=== PATIENT | female | born 1945 | race Caucasian/White ===

== ENCOUNTER 2016-06-19 10:13 | Emergency (ER) | payer OTHER ==
[~2016-06-19] VITALS: Ht 170.2 cm; Wt 93.8 kg
[~2016-06-19 10:13] MED LIST: 8 HOUR PAIN RE650 M1 PO; ACID CONTROLLER20 MG PO; ADALAT CC 60 MG60 MG PO; ADULT LOW DOSE81 M1 PO; ALDOMET500 MG PO; ALPRAZOLAM0.25 MG PO; AMMONIUM LACTA224 GM TP; ANTACID420 MG PO; ANUSOL HC,ANUCO25 MG PR; APRESOLINE100 MG PO; APRESOLINE50 MG PO; AQUAPHOR TP; ASPIR-TRIN325 M1 PO; ASPIRIN EC325 MG PO; ASPIRIN325 MG; ASPIRIN325 MG PO; Aranesp IV; B COMPLETE1 EACH PO; B COMPLEX #11 EACH PO; B COMPLEX1 EAC2 PO; B-100 COMPLEX1 EACH PO; BACITRACIN28.4 GM RIGHT NARE; BACITRACIN28.4 GM TP; BACTRIM,SEPT1 TABLET PO; BALANCED B-100100 MG PO; BUMETANIDE2 MG PO; BUMEX1 MG PO; BUMEX2 MG PO; BUSPAR5 MG PO; BUSPIRONE HCL5 MG PO; BYSTOLIC10 MG PO; Bumex PO; CALCITRIOL0.25 MCG PO; CALCITRIOL0.5 MCG PO; CALCIUM CARBO1000 MG PO; CARDURA2 M1 PO; CARDURA4 MG PO; CATAPRES0.1 MG G-TUBE; CATAPRES0.1 MG PO; CATAPRES0.2 MG PO; CATAPRES0.3 MG PO; CEFTIN500 MG PO; CLONIDINE HCL0.2 MG PO; CLONIDINE HCL0.3 MG PO; CLOPIDOGREL75 MG PO; COMPAZINE10 MG PO; COREG6.25 M1 PO; COZAAR100 MG PO; Cozaar PO; DEXILANT60 MG PO; DIABETIC T100 MG/5 M PO; DILANTIN100 MG PO; DILANTIN30 MG PO; DILAUDID2 MG PO; DOXAZOSIN MESYLA2 MG PO; DOXAZOSIN MESYLA4 MG PO; DOXYCYCLINE HY100 M3 PO; DULCOLAX10 MG PR; ECOTRIN325 MG PO; ENTEREG12 MG PO; ESCITALOPRAM OX10 MG PO; FAMOTIDINE20 M1 PO; FAMOTIDINE20 MG PO; FLAGYL500 MG PO; FLEET ENEMA-AD118 ML PR; HEARTBURN PREVE20 MG PO; HYDRALAZINE HC100 MG PO; HYDRALAZINE HCL50 MG PO; HYDROCODON-ACE1 EAC7 PO; HYDROPHOR228 GM TP; IMODIUM A-D2 MG PO; KAYEXALATE15 GM/60 M PO; KEFLEX500 MG PO; KIONEX15 GM/60 M PO; LABETALOL HCL200 MG PO; LAC-HYDRIN 12%225 GM TP; LEVOFLOXACIN750 MG PO; LEVOTHYROXINE25 MCG PO; LEXAPRO10 MG PO; LITE COAT ASPI325 M1 PO; LOFIBRA200 MG PO; LORCET 5-325 M1 EACH PO; LOSARTAN POTAS100 MG PO; LOSARTAN POTASS50 MG PO; MELATONIN5 M1 PO; METHOCARBAMOL500 MG PO; MIRTAZAPINE15 MG PO; NIFEDICAL XL60 MG PO; NIFEDIPINE ER60 MG PO; NIFEDIPINE ER90 MG PO; NORMODYNE,TRAN200 MG PO; NOVOLOG 10100 UNITS/ SC; NOVOLOG PE100 UNITS/ SC; OMEPRAZOLE20 MG PO; ORAL ANESTHETIC7 GM MM; PANTOPRAZOLE SO40 MG PO; PEPCID20 MG PO; PERCOCET 5/31 TABLET PO; PHENYTOIN SODI100 M1 PO; PHILLIPS'400 MG/5 M PO; PLAVIX75 MG PO; PRAVACHOL40 MG PO; PRAVASTATIN SOD40 MG PO; PREVACID30 MG PO; PROCARDIA XL60 MG PO; PROCARDIA XL90 MG PO; PROMETHAZINE HC25 M1 PO; PROTONIX40 MG PO; Pepcid PO; Procardia XL,Adalat PO; QUESTRAN4 GM/PACKE PO; REMERON15 M2 PO; RENVELA800 MG PO; REQUIP0.5 MG PO; ROBAXIN500 MG PO; ROCALTROL0.25 MCG PO; ROPINIROLE HCL0.5 MG PO; Rocephin; SENSIPAR60 MG PO; SENSIPAR90 MG PO; SILTUSSIN100 MG/51 PO; SORE THROAT LO1 EACH MM; SYNTHROID25 MCG PO; TEKTURNA150 MG PO; TRAMADOL HCL50 MG PO; TRANDATE200 MG PO; TUMS500 MG PO; TYLENOL EXTRA500 MG PO; TYLENOL REGULA325 MG PO; TYLENOL325 M1 PO; ULTRAM50 MG PO; VANCOMYCIN HCL1 GM IV; VICODIN 5-3001 EACH PO; VITAMIN B COMP1 EACH PO; VITAMIN B W/C1 EACH PO; VITAMIN D-32000 UNI1 PO; VITAMIN D250000 UNIT PO; VITAMIN D32000 UNIT PO; VITAMIN D34000 UNIT PO; VITAMIN D400 UNI1 PO; VITAMIN D400 UNIT PO; Vitamin B Complex PO; Vitamin D PO; WELCHOL3.75 GM PO; XANAX0.125 MG PO; XANAX0.25 MG PO; ZANTAC150 M1 PO; ZEGERID 20 MG1 EACH PO; ZOFRAN4 MG PO; [UNRECOGNIZED DRUG - OTHER] PO; [UNRECOGNIZED DRUG - REMARK] PO
[2016-06-19 14:25] LABS: EOSINOPHIL (%) 0.1 % (0-5); IMMATURE GRANULOCYTE (%) 0.2 % (0.0-0.7); IMMATURE GRANULOCYTE COUNT 0.2 K/uL; LYMPHOCYTE COUNT 0.6 K/uL (1.0-2.8); MCH 36.1 PG (29.0-34.0); MCHC 33.3 G/DL (30.0-36.0); MCV 108.3 FL (83-99); MEAN PLAT.VOLUME 10.3 uM^3 (9.5-12.4); MONOCYTE (%) 6.3 % (3-12); MONOCYTE COUNT 0.6 K/uL (0-0.8); NEUTROPHIL (%) 86.7 % (45-76); NEUTROPHIL COUNT 8.2 K/uL (1.8-6.4); PLATELET COUNT 129 K/uL (156-360); RBC DIS.WIDTH-CV 14.2 % (11.8-14.6); RBC DIS.WIDTH-SD 54.5 % (39-53); RED BLOOD COUNT 2.77 M/uL (3.80-5.20); WHITE BLOOD COUNT 9.4 K/uL (4.1-10.2)
[2016-06-19 14:35] LABS: CHLORIDE 93 mEq/L (99-109); INTER. NORMALIZED RATIO 1.2; PROTHROMBIN TIME 11.8 (9.2-11.2); PTT 29.1 (25-32); SODIUM 137 mEq/L (136-147)
[2016-06-19 14:36] LABS: MAGNESIUM 2.1 mg/dL (1.3-2.7)
[2016-06-19 14:39] LABS: ANION GAP 16 MEQ/L (2-14); GLUCOSE 491 mg/dL (70-99)
[2016-06-19 14:41] LABS: GFR ESTIMATE (CALCULATED) 9 mL/min/
[2016-06-19 14:42] LABS: UREA NITROGEN (BUN) 44 mg/dL (9-23)
[2016-06-19 14:44] LABS: CREATINE KINASE 28 IU/L (1-294)
[2016-06-19 14:48] LABS: TROP-I INTERPRETATION NEGATIVE; TROPONIN-I 0.07 ng/mL (0.0-0.30)
[2016-06-19 17:18] VITALS: BP 162/47
== END 2016-06-19 17:20 | disposition home or self-care (01) ==
LOC: EME 10:13
PROVIDERS: Emergency Medicine
DX: E11.65 Type 2 diabetes mellitus with hyperglycemia (principal); S80.02XA Contusion of left knee, initial encounter; J44.9 Chronic obstructive pulmonary disease, unspecified; E78.5 Hyperlipidemia, unspecified; I10 Essential (primary) hypertension; W06.XXXA Fall from bed, initial encounter; N19 Unspecified kidney failure; Z99.2 Dependence on renal dialysis; Z79.01 Long term (current) use of anticoagulants; Z88.6 Allergy status to analgesic agent
CPT/HCPCS: 70450; 71010; 72170; 73564; 74176; 80048; 82550 91; 82948; 83735; 84484; 85025; 85610; 85730; 93005; 99281; 99285

== ENCOUNTER 2016-06-20 11:20 | Inpatient (IN) | payer OTHER ==
[~2016-06-20] VITALS: Ht 167.6 cm; Wt 98.6 kg
[2016-06-20 11:56] LABS: HEMATOCRIT 29.3 % (36.0-46.0); MCHC 33.4 G/DL (30.0-36.0); MCV 107.7 FL (83-99); MEAN PLAT.VOLUME 9.9 uM^3 (9.5-12.4); PLATELET COUNT 141 K/uL (156-360); RBC DIS.WIDTH-CV 14.4 % (11.8-14.6); RBC DIS.WIDTH-SD 55.1 % (39-53); RED BLOOD COUNT 2.72 M/uL (3.80-5.20); WHITE BLOOD COUNT 7.4 K/uL (4.1-10.2)
[2016-06-20 12:16] LABS: CHLORIDE 91 mEq/L (99-109); POTASSIUM 4.3 mEq/L (3.7-5.4); SODIUM 135 mEq/L (136-147)
[2016-06-20 12:18] LABS: GLUCOSE 367 mg/dL (70-99)
[2016-06-20 12:19] LABS: ANION GAP 16 MEQ/L (2-14)
[2016-06-20 12:22] LABS: GFR ESTIMATE (CALCULATED) 7 mL/min/; UREA NITROGEN (BUN) 55 mg/dL (9-23)
[2016-06-20 17:13] LABS: POINT-OF-CARE METER ID UU13113702
[2016-06-21 07:26] LABS: POINT-OF-CARE METER ID UU13113702
[2016-06-21 09:18] VITALS: BP 187/71
[2016-06-21 13:57] LABS: ANION GAP 14 MEQ/L (2-14); CHLORIDE 90 MEQ/L (99-109); POTASSIUM 4.8 MEQ/L (3.7-5.4); SAMPLE HEMOLYSIS CHECK 0; SAMPLE ICTERIC CHECK 0; SAMPLE LIPEMIA CHECK 0; SODIUM 130 MEQ/L (136-147)
[2016-06-21 14:00] LABS: EOSINOPHIL (%) 0.7 % (0-5); HEMATOCRIT 26.5 % (36.0-46.0); IMMATURE GRANULOCYTE (%) 0.2 % (0.0-0.7); LYMPHOCYTE COUNT 0.8 K/uL (1.0-2.8); MCH 35.3 PG (29.0-34.0); MCHC 33.2 G/DL (30.0-36.0); MCV 106.4 FL (83-99); MEAN PLAT.VOLUME 10.2 uM^3 (9.5-12.4); MONOCYTE (%) 7.8 % (3-12); MONOCYTE COUNT 0.5 K/uL (0-0.8); NEUTROPHIL (%) 77.2 % (45-76); NEUTROPHIL COUNT 4.6 K/uL (1.8-6.4); PLATELET COUNT 141 K/uL (156-360); RBC DIS.WIDTH-CV 14.9 % (11.8-14.6); RBC DIS.WIDTH-SD 57.3 % (39-53); RED BLOOD COUNT 2.49 M/uL (3.80-5.20); WHITE BLOOD COUNT 5.9 K/uL (4.1-10.2)
[2016-06-21 14:02] LABS: GFR ESTIMATE (CALCULATED) 6 mL/min/; GLUCOSE 219 mg/dL (70-99); UREA NITROGEN (BUN) 63 mg/dL (9-23)
[2016-06-21 17:56] VITALS: BP 174/93
[2016-06-21 19:01] LABS: POINT-OF-CARE METER ID UU13113717
[2016-06-21 21:04] LABS: POINT-OF-CARE METER ID UU13113717
[2016-06-22 00:35] VITALS: BP 149/57
[2016-06-22 05:59] LABS: POINT-OF-CARE METER ID UU13113717
[2016-06-22 07:54] LABS: EOSINOPHIL (%) 2.1 % (0-5); EOSINOPHIL COUNT 0.1 K/uL (0-0.3); HEMATOCRIT 27.5 % (36.0-46.0); IMMATURE GRANULOCYTE (%) 0.2 % (0.0-0.7); LYMPHOCYTE COUNT 0.6 K/uL (1.0-2.8); MCH 35.3 PG (29.0-34.0); MCHC 33.1 G/DL (30.0-36.0); MCV 106.6 FL (83-99); MEAN PLAT.VOLUME 10.4 uM^3 (9.5-12.4); MONOCYTE COUNT 0.4 K/uL (0-0.8); NEUTROPHIL (%) 73.1 % (45-76); NEUTROPHIL COUNT 3.2 K/uL (1.8-6.4); NRBC (%) 0.7 /100 WBC (0-0); PLATELET COUNT 147 K/uL (156-360); RBC DIS.WIDTH-CV 14.8 % (11.8-14.6); RBC DIS.WIDTH-SD 57.2 % (39-53); RED BLOOD COUNT 2.58 M/uL (3.80-5.20); WHITE BLOOD COUNT 4.4 K/uL (4.1-10.2)
[2016-06-22 08:16] LABS: ANION GAP 11 MEQ/L (2-14); CHLORIDE 95 MEQ/L (99-109); GLUCOSE 266 mg/dL (70-99); SAMPLE HEMOLYSIS CHECK 0; SAMPLE ICTERIC CHECK 0; SAMPLE LIPEMIA CHECK 0; SODIUM 133 MEQ/L (136-147)
[2016-06-22 08:18] LABS: GFR ESTIMATE (CALCULATED) 11 mL/min/; POTASSIUM 3.7 MEQ/L (3.7-5.4); UREA NITROGEN (BUN) 31 mg/dL (9-23)
[2016-06-22 09:25] LABS: ALKALINE PHOSPHATASE 142 IU/L (3-129); Estimated Average Glucose 203 mg/dL (70-123); HEMOGLOBIN A1c (GLYCOHEMOGLOB) 8.7 % HGB (Below 5.7); IRON 69 MCG/DL (35-150); TOTAL BILIRUBIN 0.7 MG/DL (0.0-1.0)
[2016-06-22 10:05] LABS: FERRITIN 608 NG/ML (10-291)
[2016-06-22 12:09] LABS: POINT-OF-CARE METER ID UU13113717
[2016-06-22 16:44] LABS: POINT-OF-CARE METER ID UU13113717
[2016-06-22 22:20] LABS: POINT-OF-CARE METER ID UU13113717
[2016-06-22 23:46] VITALS: BP 131/63
[2016-06-23 06:17] LABS: POINT-OF-CARE METER ID UU13113717
[2016-06-23 07:54] LABS: HEMATOCRIT 32.2 % (36.0-46.0); MCH 34.9 PG (29.0-34.0); MCHC 32.9 G/DL (30.0-36.0); MCV 105.9 FL (83-99); MEAN PLAT.VOLUME 10.1 uM^3 (9.5-12.4); PLATELET COUNT 190 K/uL (156-360); RBC DIS.WIDTH-CV 15.2 % (11.8-14.6); RBC DIS.WIDTH-SD 58.4 % (39-53); RED BLOOD COUNT 3.04 M/uL (3.80-5.20); WHITE BLOOD COUNT 5.6 K/uL (4.1-10.2)
[2016-06-23 08:14] VITALS: BP 153/85
[2016-06-23 08:20] LABS: ALKALINE PHOSPHATASE 177 IU/L (3-129); ANION GAP 14 MEQ/L (2-14); CHLORIDE 94 MEQ/L (99-109); GFR ESTIMATE (CALCULATED) 14 mL/min/; GLUCOSE 169 mg/dL (70-99); POTASSIUM 4.1 MEQ/L (3.7-5.4); SAMPLE HEMOLYSIS CHECK 0; SAMPLE ICTERIC CHECK 0; SAMPLE LIPEMIA CHECK 0; SODIUM 132 MEQ/L (136-147); TOTAL BILIRUBIN 0.8 MG/DL (0.0-1.0); UREA NITROGEN (BUN) 24 mg/dL (9-23)
[2016-06-23 11:39] LABS: POINT-OF-CARE METER ID UU13113725
[2016-06-23 15:45] LABS: POINT-OF-CARE METER ID UU13113725
[2016-06-23 16:04] VITALS: BP 187/76
[2016-06-24 00:26] VITALS: BP 147/65
[2016-06-24 06:48] LABS: POINT-OF-CARE METER ID UU13113725
[2016-06-24 08:37] VITALS: BP 148/73
[2016-06-24 11:31] VITALS: BP 153/69
[2016-06-24 15:38] LABS: POINT-OF-CARE METER ID UU13113725
[2016-06-24 16:28] VITALS: BP 171/73
[2016-06-24 20:48] LABS: POINT-OF-CARE METER ID UU13113725
[2016-06-24 22:35] VITALS: BP 135/67
[2016-06-25 06:02] LABS: POINT-OF-CARE METER ID UU13113725
[2016-06-25 06:08] LABS: HEMATOCRIT 29.3 % (36.0-46.0); MCH 35.2 PG (29.0-34.0); MCHC 34.1 G/DL (30.0-36.0); MCV 103.2 FL (83-99); PLATELET COUNT 154 K/uL (156-360); RBC DIS.WIDTH-CV 15.2 % (11.8-14.6); RBC DIS.WIDTH-SD 56.8 % (39-53); RED BLOOD COUNT 2.84 M/uL (3.80-5.20)
[2016-06-25 06:48] LABS: ALKALINE PHOSPHATASE 182 IU/L (3-129); ANION GAP 19 MEQ/L (2-14); CHLORIDE 86 MEQ/L (99-109); GLUCOSE 153 mg/dL (70-99); SAMPLE HEMOLYSIS CHECK 1; SAMPLE ICTERIC CHECK 0; SAMPLE LIPEMIA CHECK 0; SODIUM 127 MEQ/L (136-147)
[2016-06-25 06:49] LABS: GFR ESTIMATE (CALCULATED) 7 mL/min/; POTASSIUM 5.4 MEQ/L (3.7-5.4); TOTAL BILIRUBIN 0.6 MG/DL (0.0-1.0); UREA NITROGEN (BUN) 47 mg/dL (9-23)
[2016-06-25 09:52] LABS: POTASSIUM 3.9 MEQ/L (3.7-5.4)
[2016-06-25 12:21] LABS: POINT-OF-CARE METER ID UU13113717
[2016-06-25 16:28] LABS: POINT-OF-CARE METER ID UU13113725
[2016-06-25 21:03] LABS: POINT-OF-CARE METER ID UU13113725
[2016-06-25 23:26] VITALS: BP 136/65
[2016-06-26 05:57] LABS: POINT-OF-CARE METER ID UU13113725
[2016-06-26 07:16] VITALS: BP 177/81
[2016-06-26 09:00] LABS: EOSINOPHIL (%) 1.1 % (0-5); EOSINOPHIL COUNT 0.1 K/uL (0-0.3); HEMATOCRIT 30.2 % (36.0-46.0); IMMATURE GRANULOCYTE (%) 0.4 % (0.0-0.7); LYMPHOCYTE COUNT 0.9 K/uL (1.0-2.8); MCH 35.5 PG (29.0-34.0); MCHC 34.8 G/DL (30.0-36.0); MEAN PLAT.VOLUME 9.9 uM^3 (9.5-12.4); MONOCYTE (%) 8.5 % (3-12); MONOCYTE COUNT 0.5 K/uL (0-0.8); NEUTROPHIL (%) 72.7 % (45-76); PLATELET COUNT 133 K/uL (156-360); RBC DIS.WIDTH-CV 15.3 % (11.8-14.6); RBC DIS.WIDTH-SD 55.7 % (39-53); RED BLOOD COUNT 2.96 M/uL (3.80-5.20); WHITE BLOOD COUNT 5.4 K/uL (4.1-10.2)
[2016-06-26 09:27] LABS: ALKALINE PHOSPHATASE 198 IU/L (3-129); ANION GAP 13 MEQ/L (2-14); CHLORIDE 89 MEQ/L (99-109); POTASSIUM 4.2 MEQ/L (3.7-5.4); SAMPLE HEMOLYSIS CHECK 0; SAMPLE ICTERIC CHECK 0; SAMPLE LIPEMIA CHECK 0; SODIUM 126 MEQ/L (136-147); TOTAL BILIRUBIN 0.7 MG/DL (0.0-1.0); UREA NITROGEN (BUN) 29 mg/dL (9-23)
[2016-06-26 09:28] LABS: GFR ESTIMATE (CALCULATED) 11 mL/min/; GLUCOSE 236 mg/dL (70-99)
[2016-06-26 11:47] LABS: POINT-OF-CARE METER ID UU13113717
[2016-06-26 15:44] VITALS: BP 153/73
[2016-06-26] MEDS ORDERED: DURICEF500 MG PO (15:46)
[2016-06-26] MEDS ORDERED: TRAMADOL HCL50 MG PO (15:48)
[2016-06-26] MEDS ORDERED: SILVADENE20 GM TP (15:49)
[2016-06-26] MEDS ORDERED: NEURONTIN100 MG PO (15:50)
[2016-06-26 16:29] LABS: POINT-OF-CARE METER ID UU13113725
== END 2016-06-26 17:00 | disposition home health service (06) | DRG 579 ==
LOC: EME 11:20 → 5EAST 22:12 → EDOF 22:12 → 5EAST 06-21 17:47
PROVIDERS: Internal Medicine; Internal Medicine Nephrology
PROC: 5A1D60Z (ICD-10-PCS; principal; 2016-06-21)
PROC: 0JBK0ZZ Excision of Left Hand Subcutaneous Tissue and Fascia, Open Approach (ICD-10-PCS; 2016-06-25)
DX: L03.115 Cellulitis of right lower limb (principal); L03.116 Cellulitis of left lower limb; R53.1 Weakness; R25.1 Tremor, unspecified; E11.22 Type 2 diabetes mellitus with diabetic chronic kidney disease; I13.2 Hypertensive heart and chronic kidney disease with heart failure and with stage 5 chronic kidney disease, or end stage renal disease; N18.6 End stage renal disease; N25.81 Secondary hyperparathyroidism of renal origin; I50.9 Heart failure, unspecified; M25.512 Pain in left shoulder; I25.10 Atherosclerotic heart disease of native coronary artery without angina pectoris; I73.9 Peripheral vascular disease, unspecified; E11.40 Type 2 diabetes mellitus with diabetic neuropathy, unspecified; E78.5 Hyperlipidemia, unspecified; I48.2 Chronic atrial fibrillation; K21.9 Gastro-esophageal reflux disease without esophagitis; G40.909 Epilepsy, unspecified, not intractable, without status epilepticus; F41.9 Anxiety disorder, unspecified; F32.9 Major depressive disorder, single episode, unspecified; D64.9 Anemia, unspecified; S61.402A Unspecified open wound of left hand, initial encounter; S00.93XA Contusion of unspecified part of head, initial encounter; S80.02XA Contusion of left knee, initial encounter; S70.02XA Contusion of left hip, initial encounter; S50.02XA Contusion of left elbow, initial encounter; W06.XXXA Fall from bed, initial encounter; E86.0 Dehydration; D61.818 Other pancytopenia; E11.65 Type 2 diabetes mellitus with hyperglycemia; E83.51 Hypocalcemia; E87.5 Hyperkalemia; Z79.4 Long term (current) use of insulin; Z79.82 Long term (current) use of aspirin; Z86.73 Personal history of transient ischemic attack (TIA), and cerebral infarction without residual deficits; Z79.02 Long term (current) use of antithrombotics/antiplatelets; Z89.431 Acquired absence of right foot; Z87.891 Personal history of nicotine dependence; Z99.2 Dependence on renal dialysis
CPT/HCPCS: 70450; 71010; 71020; 72170; 73564; 74176; 80048; 80053; 80069; 81003; 82550 91; 82607; 82728; 82746; 82948; 83036; 83540; 83605; 83735; 84466; 84484; 84999; 85025; 85027; 85610; 85730; 86850; 86900; 86901; 86920; 87070; 87075; 87076; 87077; 87147; 87185; 87186; 87205; 93005; 94799; 99281; 99285; J0360; J0692; J1170; J1644; J1815; J3420; J7050; Q0169

== ENCOUNTER → 2016-09-27 | Outpatient (CLI) | payer OTHER ==
[~2016-09-27] MED LIST changes: +DURICEF500 MG PO; +NEURONTIN100 MG PO; +SILVADENE20 GM TP
== END | disposition home or self-care (01) ==
DX: K21.9 Gastro-esophageal reflux disease without esophagitis (principal); R13.10 Dysphagia, unspecified
CPT/HCPCS: 92611 GN; G8996 GN; G8997 GN; G8998 GN

== ENCOUNTER 2016-11-12 11:47 | Inpatient (IN) | payer OTHER ==
[~2016-11-12] VITALS: Ht 167.6 cm; Wt 83.6 kg
[2016-11-12 13:43] LABS: HEMATOCRIT 30.6 % (36.0-46.0); MCH 37.1 PG (29.0-34.0); MCHC 33.3 G/DL (30.0-36.0); MCV 111.3 FL (83-99); MEAN PLAT.VOLUME 10.3 uM^3 (9.5-12.4); PLATELET COUNT 87 K/uL (156-360); RBC DIS.WIDTH-CV 15.8 % (11.8-14.6); RBC DIS.WIDTH-SD 63.7 % (39-53); RED BLOOD COUNT 2.75 M/uL (3.80-5.20); WHITE BLOOD COUNT 5.9 K/uL (4.1-10.2)
[2016-11-12 13:46] LABS: CHLORIDE 100 mEq/L (99-109); POTASSIUM 4.3 mEq/L (3.7-5.4); SODIUM 143 mEq/L (136-147)
[2016-11-12 13:47] LABS: GLUCOSE 220 mg/dL (70-99)
[2016-11-12 13:49] LABS: ANION GAP 17 MEQ/L (2-14)
[2016-11-12 13:51] LABS: GFR ESTIMATE (CALCULATED) 7 mL/min/
[2016-11-12 13:52] LABS: UREA NITROGEN (BUN) 54 mg/dL (9-23)
[2016-11-12 14:09] LABS: TOTAL BILIRUBIN 0.7 mg/dL (0.0-1.0)
[2016-11-12 14:10] LABS: ALKALINE PHOSPHATASE 134 IU/L (3-129)
[2016-11-12 14:13] LABS: DIRECT BILIRUBIN 0.4 mg/dL (0.0-0.3)
[2016-11-12 14:14] LABS: LIPASE 20 U/L (1.0-51.0)
[2016-11-12 14:18] LABS: TROP-I INTERPRETATION NEGATIVE; TROPONIN-I 0.04 ng/mL (0.0-0.30)
[2016-11-12 14:23] LABS: ABS NEUTROPHIL COUNT 5.3; ATYPICAL LYMPHOCYTE 0.9 %; BAND NEUTROPHILS 0.9 % (0-8.0); EOSINOPHIL ABS CT 0; INSTRUMENT ABS NEUTROPHIL CT 4.8 K/uL; LYMPHOCYTES 5.3 % (15.0-45.0); MYELOCYTES 0.9 %; SEG.NEUTROPHILS 88.5 % (46.0-76.0)
[2016-11-12] MEDS ORDERED: CATAPRES0.1 MG PO (17:18)
[2016-11-12 19:50] VITALS: BP 129/82
[2016-11-12 23:00] VITALS: BP 150/69
[2016-11-13 00:20] VITALS: BP 169/73
[2016-11-13 05:50] VITALS: BP 130/62
[2016-11-13 06:24] LABS: POINT-OF-CARE METER ID UU13113725
[2016-11-13 08:00] VITALS: BP 123/78
[2016-11-13 08:05] LABS: EOSINOPHIL (%) 1.8 % (0-5); EOSINOPHIL COUNT 0.1 K/uL (0-0.3); HEMATOCRIT 27.8 % (36.0-46.0); IMMATURE GRANULOCYTE (%) 0.5 % (0.0-0.7); INSTRUMENT ABS NEUTROPHIL CT 2.7 K/uL; LYMPHOCYTE COUNT 0.7 K/uL (1.0-2.8); MCH 37.7 PG (29.0-34.0); MCHC 33.5 G/DL (30.0-36.0); MCV 112.6 FL (83-99); MEAN PLAT.VOLUME 10.8 uM^3 (9.5-12.4); MONOCYTE (%) 12.9 % (3-12); MONOCYTE COUNT 0.5 K/uL (0-0.8); NEUTROPHIL (%) 68.1 % (45-76); NEUTROPHIL COUNT 2.7 K/uL (1.8-6.4); PLATELET COUNT 99 K/uL (156-360); RBC DIS.WIDTH-CV 16.2 % (11.8-14.6); RED BLOOD COUNT 2.47 M/uL (3.80-5.20)
[2016-11-13 08:23] LABS: ANION GAP 16 MEQ/L (2-14); CHLORIDE 99 MEQ/L (99-109); GFR ESTIMATE (CALCULATED) 7 mL/min/; GLUCOSE 190 mg/dL (70-99); POTASSIUM 4.5 MEQ/L (3.7-5.4); SAMPLE HEMOLYSIS CHECK 0; SAMPLE ICTERIC CHECK 0; SAMPLE LIPEMIA CHECK 0; SODIUM 142 MEQ/L (136-147); UREA NITROGEN (BUN) 57 mg/dL (9-23)
[2016-11-13 11:53] LABS: HBSG INDEX 0.19
[2016-11-13 12:00] LABS: POINT-OF-CARE METER ID UU13113725
[2016-11-13 16:43] LABS: POINT-OF-CARE METER ID UU13113725
[2016-11-13 17:58] VITALS: BP 155/86
[2016-11-13 20:05] VITALS: BP 127/77
[2016-11-13 21:04] LABS: POINT-OF-CARE METER ID UU13113725
[2016-11-14] VITALS (7 sets, daily range): BP systolic 112–168; BP diastolic 56–73
[2016-11-14 08:32] LABS: EOSINOPHIL (%) 3.6 % (0-5); EOSINOPHIL COUNT 0.1 K/uL (0-0.3); HEMATOCRIT 27.6 % (36.0-46.0); IMMATURE GRANULOCYTE (%) 0.3 % (0.0-0.7); INSTRUMENT ABS NEUTROPHIL CT 1.9 K/uL; LYMPHOCYTE COUNT 0.8 K/uL (1.0-2.8); MCH 37.8 PG (29.0-34.0); MCHC 33.7 G/DL (30.0-36.0); MCV 112.2 FL (83-99); MEAN PLAT.VOLUME 10.3 uM^3 (9.5-12.4); MONOCYTE (%) 17.6 % (3-12); MONOCYTE COUNT 0.6 K/uL (0-0.8); NEUTROPHIL COUNT 1.9 K/uL (1.8-6.4); PLATELET COUNT 101 K/uL (156-360); RBC DIS.WIDTH-CV 15.8 % (11.8-14.6); RBC DIS.WIDTH-SD 64.5 % (39-53); RED BLOOD COUNT 2.46 M/uL (3.80-5.20); WHITE BLOOD COUNT 3.4 K/uL (4.1-10.2)
[2016-11-14 08:46] LABS: ANION GAP 13 MEQ/L (2-14); CHLORIDE 96 MEQ/L (99-109); POTASSIUM 3.8 MEQ/L (3.7-5.4); SAMPLE HEMOLYSIS CHECK 0; SAMPLE ICTERIC CHECK 0; SAMPLE LIPEMIA CHECK 0; SODIUM 137 MEQ/L (136-147)
[2016-11-14 08:52] LABS: GFR ESTIMATE (CALCULATED) 11 mL/min/; GLUCOSE 217 mg/dL (70-99); UREA NITROGEN (BUN) 32 mg/dL (9-23)
[2016-11-14 12:55] LABS: POINT-OF-CARE METER ID UU13113725
[2016-11-15 04:01] VITALS: BP 180/73
[2016-11-15 07:09] VITALS: BP 174/70
[2016-11-15 11:05] VITALS: BP 152/71
[2016-11-15 15:28] VITALS: BP 131/59
[2016-11-15 20:03] VITALS: BP 171/86
[2016-11-15 21:41] LABS: POINT-OF-CARE METER ID UU13113725
[2016-11-15 23:43] VITALS: BP 169/79
[2016-11-16 04:00] VITALS: BP 164/79
[2016-11-16 07:57] VITALS: BP 155/70
[2016-11-16 08:44] LABS: HEMATOCRIT 23.6 % (36.0-46.0); MCH 37.5 PG (29.0-34.0); MCHC 34.3 G/DL (30.0-36.0); MCV 109.3 FL (83-99); MEAN PLAT.VOLUME 9.9 uM^3 (9.5-12.4); PLATELET COUNT 93 K/uL (156-360); RBC DIS.WIDTH-CV 14.8 % (11.8-14.6); RED BLOOD COUNT 2.16 M/uL (3.80-5.20); WHITE BLOOD COUNT 2.7 K/uL (4.1-10.2)
[2016-11-16 09:01] LABS: CHLORIDE 99 mEq/L (99-109); SODIUM 137 mEq/L (136-147)
[2016-11-16 09:03] LABS: GLUCOSE 130 mg/dL (70-99)
[2016-11-16 09:04] LABS: ANION GAP 11 MEQ/L (2-14)
[2016-11-16 09:06] LABS: GFR ESTIMATE (CALCULATED) 9 mL/min/
[2016-11-16 09:07] LABS: UREA NITROGEN (BUN) 33 mg/dL (9-23)
[2016-11-16 15:50] VITALS: BP 154/70
[2016-11-16 16:35] LABS: POINT-OF-CARE METER ID UU13113725
[2016-11-16 19:17] VITALS: BP 132/60
[2016-11-16 21:32] LABS: POINT-OF-CARE METER ID UU13113725
[2016-11-16 23:58] VITALS: BP 136/70
[2016-11-17 03:40] VITALS: BP 138/60
[2016-11-17 05:43] LABS: POINT-OF-CARE METER ID UU13113725
[2016-11-17 08:23] VITALS: BP 118/58
[2016-11-17 11:30] LABS: POINT-OF-CARE METER ID UU13113725
[2016-11-17 13:58] VITALS: BP 156/69
[2016-11-17 16:28] LABS: POINT-OF-CARE METER ID UU13113725
[2016-11-17 17:56] VITALS: BP 115/81
[2016-11-17 19:13] VITALS: BP 148/64
[2016-11-17 21:04] LABS: POINT-OF-CARE METER ID UU13113725
[2016-11-17 22:52] VITALS: BP 172/76
[2016-11-18 02:20] VITALS: BP 160/77
[2016-11-18 07:22] VITALS: BP 150/65
[2016-11-18 10:57] VITALS: BP 170/71
[2016-11-18 16:51] VITALS: BP 180/79
[2016-11-18 19:15] VITALS: BP 169/79
[2016-11-18 21:03] LABS: POINT-OF-CARE METER ID UU13113725
[2016-11-18 22:55] VITALS: BP 174/92
[2016-11-19 02:51] VITALS: BP 167/70
[2016-11-19 05:30] LABS: POINT-OF-CARE METER ID UU13113725
[2016-11-19 08:09] VITALS: BP 146/63
[2016-11-19 10:41] LABS: EOSINOPHIL (%) 3.3 % (0-5); EOSINOPHIL COUNT 0.1 K/uL (0-0.3); HEMATOCRIT 29.3 % (36.0-46.0); IMMATURE GRANULOCYTE (%) 0.3 % (0.0-0.7); INSTRUMENT ABS NEUTROPHIL CT 1.8 K/uL; MCH 37.1 PG (29.0-34.0); MCHC 33.4 G/DL (30.0-36.0); MONOCYTE (%) 16.6 % (3-12); MONOCYTE COUNT 0.6 K/uL (0-0.8); NEUTROPHIL COUNT 1.8 K/uL (1.8-6.4); PLATELET COUNT 110 K/uL (156-360); RBC DIS.WIDTH-CV 15.6 % (11.8-14.6); RBC DIS.WIDTH-SD 63.2 % (39-53); WHITE BLOOD COUNT 3.6 K/uL (4.1-10.2)
[2016-11-19 10:42] LABS: RED BLOOD COUNT 2.64 M/uL (3.80-5.20)
[2016-11-19 11:37] LABS: ANION GAP 16 MEQ/L (2-14); CHLORIDE 90 MEQ/L (99-109); GLUCOSE 218 mg/dL (70-99); SAMPLE HEMOLYSIS CHECK 0; SAMPLE ICTERIC CHECK 0; SAMPLE LIPEMIA CHECK 0
[2016-11-19 11:40] LABS: GFR ESTIMATE (CALCULATED) 6 mL/min/; POTASSIUM 5.4 MEQ/L (3.7-5.4); SODIUM 130 MEQ/L (136-147); UREA NITROGEN (BUN) 74 mg/dL (9-23)
[2016-11-19 11:44] LABS: IRON 114 MCG/DL (35-150)
[2016-11-19] MEDS ORDERED: Chronulac,Cephulac,E PO (16:26)
[2016-11-19] MEDS ORDERED: ZOFRAN4 MG PO (16:26)
[2016-11-19] MEDS ORDERED: FERGON324 MG PO (16:26)
[2016-11-19 16:36] LABS: POINT-OF-CARE METER ID UU13113725
[2016-11-19] MEDS ORDERED: LEVAQUIN500 MG PO ×2 (16:46→16:47)
[2016-11-19 17:38] VITALS: BP 176/86
== END 2016-11-19 18:42 | disposition home health service (06) | DRG 193 ==
LOC: EME 11:47 → 5EAST 16:18 → EDOF 16:18 → 5EAST 19:06
PROVIDERS: Internal Medicine; Internal Medicine Nephrology; Physician Assistant
PROC: 5A1D60Z (ICD-10-PCS; principal; 2016-11-13)
PROC: 30233N1 Transfusion of Nonautologous Red Blood Cells into Peripheral Vein, Percutaneous Approach (ICD-10-PCS; 2016-11-19)
DX: J18.9 Pneumonia, unspecified organism (principal); R10.31 Right lower quadrant pain; R11.2 Nausea with vomiting, unspecified; E11.22 Type 2 diabetes mellitus with diabetic chronic kidney disease; I13.2 Hypertensive heart and chronic kidney disease with heart failure and with stage 5 chronic kidney disease, or end stage renal disease; I50.9 Heart failure, unspecified; N18.6 End stage renal disease; D64.9 Anemia, unspecified; E11.51 Type 2 diabetes mellitus with diabetic peripheral angiopathy without gangrene; E78.5 Hyperlipidemia, unspecified; J44.9 Chronic obstructive pulmonary disease, unspecified; K21.9 Gastro-esophageal reflux disease without esophagitis; F32.9 Major depressive disorder, single episode, unspecified; G40.909 Epilepsy, unspecified, not intractable, without status epilepticus; G89.29 Other chronic pain; E21.3 Hyperparathyroidism, unspecified; I48.2 Chronic atrial fibrillation; I08.0 Rheumatic disorders of both mitral and aortic valves; I45.10 Unspecified right bundle-branch block; E11.65 Type 2 diabetes mellitus with hyperglycemia; E66.9 Obesity, unspecified; K59.00 Constipation, unspecified; I25.10 Atherosclerotic heart disease of native coronary artery without angina pectoris; Z87.891 Personal history of nicotine dependence; Z99.2 Dependence on renal dialysis; Z79.82 Long term (current) use of aspirin; Z79.4 Long term (current) use of insulin; Z79.02 Long term (current) use of antithrombotics/antiplatelets; Z68.29 Body mass index [BMI] 29.0-29.9, adult
CPT/HCPCS: 71010; 71020; 74176; 80048; 80069; 80076; 81003; 82607; 82746; 82948; 83540; 83605; 83690; 84466; 84484; 85025; 85027; 86900; 86901; 86920; 87040; 87340; 93005; 94640; 97530 GO; 97530 GP; 99202; 99281; 99285; J0360; J0456; J0692; J0696; J0881; J1644; J1756; J1815; J2270; J2405; J3420; J7040; J7050; P9016